=== PATIENT | female | born 1970 | race Caucasian/White ===

== ENCOUNTER 2023-02-15 08:05 | Outpatient (CLI) | payer OTHER, SELFPAY ==
--- NOTE | 2023-02-15 08:15 | CRLHL7_ITS ---
For Patients: As a result of the Century Cures Act, medical imaging exams and procedure reports are released immediately into your electronic medical record. You may view this report before your referring provider. If you have questions, please contact your health care provider. INDICATION: Abnormal uterine bleeding COMPARISON: none TECHNIQUE: 2D chandler scale and color Doppler images were acquired of the pelvis using a transabdominal and transvaginal approach. FINDINGS: Sonographic images demonstrate a normal size and smooth outer contour of the uterus. Uterus measures 8.0 cm in length by 3.7 cm in AP diameter by 4.7 cm in transverse dimension. The myometrium has a normal uniform echotexture. The endometrial lining measures 4 mm in composite thickness. The right ovary measures 2.2 x 1.7 x 1.9 cm in size and the left ovary measures 1.6 x 1.1 x 0.9 cm. The ovaries demonstrate normal arterial and venous blood flow on color Doppler analysis. There are no suspicious fluid collections within the cul-de-sac. IMPRESSION: Post endometrial biopsy changes. The endometrium measures 4 millimeters. No endometrial fluid. No uterine fibroid. Dictated by Adán Dodd MD @ 02/15/2023 9:25:00 AM (Electronically Signed)
== END 2023-02-15 08:06 | disposition home or self-care (01) ==
LOC: US 08:05
PROVIDERS: Visit Provider Obstetrics & Gynecology
DX: N93.9 Abnormal uterine and vaginal bleeding, unspecified (principal)
CPT/HCPCS: 76830; 76856

== ENCOUNTER 2025-02-19 08:42 | Outpatient (CLI) | payer OTHER, SELFPAY | END 2025-02-19 08:43 | disposition home or self-care (01) | LOC: NFLDREF 02-21 08:19 | PROVIDERS: Visit Provider Physician Assistant Medical | DX: E03.9 Hypothyroidism, unspecified (principal); G47.00 Insomnia, unspecified; B00.1 Herpesviral vesicular dermatitis; Z79.890 Hormone replacement therapy; Z13.9 Encounter for screening, unspecified; Z13.6 Encounter for screening for cardiovascular disorders | CPT/HCPCS: 80053; 80061; 82306; 82607; 84443 ==